=== PATIENT | male | born 1990 | race Caucasian/White ===

== ENCOUNTER 2020-01-02 20:17 | Emergency (ER) | payer SELFPAY ==
[2020-01-02 20:45] VITALS: BP 150/80; PULSE 70; RESP 15; TEMP 37.4; O2SAT 100
--- NOTE | 2020-01-02 21:02 | ED.GENADULT ---
HPI - General Adult General Chief complaint: Unspecified Stated complaint: bite on ankle Source: patient History of Present Illness HPI narrative: patient has a red warm tender area to the lateral aspect of his left lower extremity this is a 29-year-old with no significant past medical history symptoms started approximately 2 to 3 days ago and has progressed with a central punctate eschars lesion with surrounding erythema as warm swollen and tender to touch. There is no fever chills no shortness of breath no nausea vomiting or abdominal pain. Patient is not sure when he came in contact with. Onset (ago): day(s) Location: left and upper extremity Radiation: non-radiation Severity: moderate Quality: aching Pain Consistency: constant Relieving factors: none Exacerbating factors: none Associated symptoms: denies other symptoms Related Data Allergies Allergy/AdvReac Type Severity Reaction Status Date / Time No Known Allergies Allergy Verified 04/25/19 17:30 Review of Systems Review of Systems: All systems reviewed & are unremarkable except as noted in HPI and below PMFSH Past Medical History Medical History Strep throat Surgical History Surgical History No history of previous surgery Family History Family History Mother No problems noted. Father No problems noted. Social History Social History Additional smoking assessment comments: does not smoke cigarettes Alcohol intake: current Substance use: never Exam Const: General: no acute distress Orientation/consciousness: patient oriented x3 HENMT: Head: normal to inspection Eyes: Conjunctivae: conjunctivae normal Pupils: Equal, round and reactive pupils present EOM: EOMs intact bilaterally Neck: Neck: normal visual inspection, no lymphadenopathy and no meningeal signs Chest: Chest palpation & inspection: normal inspection of the chest Resp: Effort & Inspection: normal respiratory effort Auscultation: clear to auscultation bilaterally Cardio: Rate: regular rate Rhythm: regular rhythm GI: GI Palp: Yes Soft to palpation Auscultation: normal bowel sounds Skin: Other: Central punctate eschar with surrounding erythema warmth and tenderness left lower lateral extremity Extrem: General: edema Psych: Mental Status: mental status grossly normal Course Course Emergency Course: patient received IM ceftriaxone and updated with his tetanus Vital Signs Vital signs: Vital Signs Temperature 37.4 C 01/02/20 20:45 Pulse Rate 70 01/02/20 20:45 Respiratory Rate 01/02/20 20:45 Blood Pressure 150/80 H 01/02/20 20:45 Pulse Oximetry 100 01/02/20 20:45 Temperature 37.4 C 01/02/20 20:45 Pulse Rate 70 01/02/20 20:45 Respiratory Rate 01/02/20 20:45 Blood Pressure 150/80 H 01/02/20 20:45 Pulse Oximetry 100 01/02/20 20:45 Medical Decision Making Vital Signs Vital Signs: Vital Signs Temperature 37.4 C 01/02/20 20:45 Pulse Rate 70 01/02/20 20:45 Respiratory Rate 01/02/20 20:45 Blood Pressure 150/80 H 01/02/20 20:45 Pulse Oximetry 100 01/02/20 20:45 Temperature 37.4 C 01/02/20 20:45 Pulse Rate 70 01/02/20 20:45 Respiratory Rate 01/02/20 20:45 Blood Pressure 150/80 H 01/02/20 20:45 Pulse Oximetry 100 01/02/20 20:45 Critical Care Time Critical Care Time Critical Care Time: No Discharge Plan Discharge Clinical Impression: Cellulitis and abscess of left leg Insect bite Qualifiers: Encounter type: initial encounter Site of insect bite: lower leg Laterality: left Qualified Code(s): S80.862A - Insect bite (nonvenomous), left lower leg, initial encounter Patient Disposition: Home, Self-Care Condition: Stable Instructions: Anti
[2020-01-02] MEDS: TETANUS,DIPHTHERIA,AC PERTUSSIS ADULT 0.5 ML (ADACEL) IM (21:53)
[2020-01-02] MEDS: cefTRIAXone 1 GM VIAL IM (21:53)
[2020-01-02] MEDS: LIDOCAINE HCL 1% LOCAL INJ 20 ML VIAL (21:54)
[2020-01-02 22:20] VITALS: RESP 15; O2SAT 100
== END 2020-01-02 22:21 | disposition home or self-care (01) ==
PROVIDERS: Emergency Provider Emergency Medicine
DX: L03.116 Cellulitis of left lower limb (principal); S80.862A Insect bite (nonvenomous), left lower leg, initial encounter; W57.XXXA Bitten or stung by nonvenomous insect and other nonvenomous arthropods, initial encounter
CPT/HCPCS: 90471; 90715; 96372; 99283; J0696

== ENCOUNTER 2020-04-01 19:34 | Emergency (ER) | payer SELFPAY ==
--- NOTE | 2020-04-01 19:42 | ED.EXTPRO ---
HPI - Extremity Problem General Stated complaint: 29YO male w/ 2 day h.o boil to right distal thigh w/ pus exudate here for examination of swelling w/ redness. Patient requests antibiotics. He denies fever, chills, trauma or injury. Related Data Allergies Allergy/AdvReac Type Severity Reaction Status Date / Time No Known Allergies Allergy Verified 04/25/19 17:30 Review of Systems Review of Systems: All systems reviewed & are unremarkable except as noted in HPI and below PMFSH Past Medical History Medical History (Updated 04/01/20 @ 19:46 by Walter Brown MD) Strep throat Surgical History Surgical History No history of previous surgery Family History Family History Mother No problems noted. Father No problems noted. Social History Social History Additional smoking assessment comments: does not smoke cigarettes Alcohol intake: current Substance use: never Exam Chest: Chest palpation & inspection: normal inspection of the chest Resp: Effort & Inspection: normal respiratory effort Auscultation: clear to auscultation bilaterally Cardio: Rate: regular rate Rhythm: regular rhythm Skin: Wounds: wounds noted (Right Distal thigh erythema w/ induration w/ open lesion) Neuro: General: patient oriented x3, moves all extremities and CN's II-XI intact bilaterally Speech: normal speech Gait exam (Neuro): Normal gait present Psych: Mental Status: mental status grossly normal Course Course Emergency Course: Home on PO abx Critical Care Time Critical Care Time Critical Care Time: No Discharge Plan Discharge Clinical Impression: Cellulitis of knee, right Patient Disposition: Home, Self-Care Condition: Improved Instructions: Antibiotic Form, Cellulitis (ED) Prescriptions: New doxycycline monohydrate 100 mg capsule 100 mg PO BID Qty: 20 RF: 0 No Action amoxicillin-pot clavulanate [Augmentin] 875-125 mg tablet 1 tablet PO Q12H Qty: 20 RF: 0 Follow-up/Referrals: UNKNOWN,DOCTOR [Primary Care Provider] - Time of Disposition: 19:47
[2020-04-01 19:45] VITALS: BP 133/88; PULSE 80; RESP 18; TEMP 37.2; O2SAT 97
[2020-04-01] MEDS: cefTRIAXone 1 GM VIAL IM (19:54)
== END 2020-04-01 20:15 | disposition home or self-care (01) ==
PROVIDERS: Emergency Provider Family Medicine
DX: L03.115 Cellulitis of right lower limb (principal)
CPT/HCPCS: 96372; 99283; A9270; J0696

== ENCOUNTER 2020-08-10 22:21 | Emergency (ER) | payer SELFPAY ==
[2020-08-10 22:43] VITALS: BP 144/88; PULSE 78; RESP 20; TEMP 37.1; O2SAT 98
--- NOTE | 2020-08-10 22:44 | ED.WOUNDLAC ---
HPI - Wound/Laceration General Chief Complaint: Wound/Laceration Stated Complaint: cut finger Time Seen by Provider: 08/10/20 22:40 Source: patient Mode of arrival: ambulatory Limitations: no limitations History of Present Illness HPI narrative: Patient comes in with laceration to tip or 4th left finger. Cut is a partial thickness laceration, which is 1.5cm long, on the very tip of the finger. Wound happened when attempting to open a can. Sharp pain at site has been mild. Bleeding was initially severe, now controlled. Direct pressure at home decreased the bleeding. No other associated signs/symptoms. Onset (ago): hour(s) Place: home Patient tetanus UTD: Yes Context: accidental Associated symptoms: pain Treatments prior to arrival: other (direct pressure) Related Data Allergies Allergy/AdvReac Type Severity Reaction Status Date / Time No Known Allergies Allergy Verified 04/25/19 17:30 Review of Systems Constitutional: Constitutional: Reports no additional constitutional complaints Eyes: Eyes: Reports no additional eye complaints ENT: Reports system reviewed and no additional complaints, except as documented Cardiovascular: Cardiovascular: Reports no additional cardiovascular complaints Respiratory: Respiratory: Reports no additional respiratory complaints Gastrointestinal: Gastrointestinal: Reports no additional gastrointestinal complaints Genitourinary: Genitourinary: Reports no additional male genitourinary complaints Musculoskeletal: Musculoskeletal: Reports no additional musculoskeletal complaints Integumentary/Breasts: Skin/Breast: Reports system reviewed and no additional complaints, except as docu Neurologic: Reports system reviewed and no additional complaints, except as documented Psychiatric: Psychiatric: Reports no additional psychiatric complaints Endocrine: Endocrine: Reports no additional endocrine complaints Hematologic/Lymphatic: Hematologic/Lymphatic: Reports no additional hematologic/lymphatic complaints Allergic/Immunologic: Allergic/Immunologic: Reports no additional allergic/immunologic complaints [facility] Past Medical History Medical History (Updated 08/11/20 @ 04:31 by Kobi Cornejo MD) No significant medical problems Surgical History Surgical History No history of previous surgery Family History Family History Mother No problems noted. Father No problems noted. Social History Social History (Updated 08/11/20 @ 04:32 by Kobi Cornejo MD) Additional smoking assessment comments: 1/2 PPD Alcohol intake: current Substance use: current Substance use type: marijuana Exam Const: General: no acute distress Orientation/consciousness: patient oriented x3 HENMT: Head: normal to inspection Ears: external ears normal and TM's normal bilaterally General nose exam: Normal external nose present Face and sinus: normal facial exam Mouth: Yes Normal oral and palatal mucosa present Throat: posterior oropharynx normal Eyes: Conjunctivae: conjunctivae normal Neck: Neck: normal visual inspection Chest: Chest palpation & inspection: normal inspection of the chest Resp: Effort & Inspection: normal respiratory effort Auscultation: clear to auscultation bilaterally Cardio: Rate: regular rate Rhythm: regular rhythm GI: GI Palp: Yes Soft to palpation (nontender) Skin: General skin exam: normal color Neuro: General: patient oriented x3 Extrem: General: normal to inspection Psych: Appearance: grossly normal Mental Status: mental status grossly normal Thought content: Yes Normal thought content present Course Course Emergency Course: Skin adhesive was applied to the wound to close the wound Vital Signs Vital signs: Vital Signs Temperature 37.1 C 08/10/20 22:43 Pulse Rate 78 08/10/20 22:43 Respiratory Rate 20 08/10/20 22:43
--- NOTE | 2020-08-10 22:47 | PC.NURSE ---
2229-Cleaned wound left hand, fourth digit with sterile water, hibclense, wound cleanser, and Dr. Cornejo applied Dermabond. I applied a band aid to cover wound.
[2020-08-10 22:49] VITALS: BP 134/81; PULSE 72; RESP 18; O2SAT 99
== END 2020-08-10 22:57 | disposition home or self-care (01) ==
PROVIDERS: Emergency Provider Emergency Medicine
DX: S61.215A Laceration without foreign body of left ring finger without damage to nail, initial encounter (principal); F12.90 Cannabis use, unspecified, uncomplicated; W26.8XXA Contact with other sharp object(s), not elsewhere classified, initial encounter
CPT/HCPCS: 99282

== ENCOUNTER 2024-10-29 10:36 | Emergency (ER) | payer MEDICAID, SELFPAY ==
[2024-10-29 10:38] VITALS: BP 147/90; PULSE 73; RESP 16; TEMP 37.2; O2SAT 99
--- OUTSIDE RECORDS SUMMARY | 2024-10-29 10:38 | XMS_ITS | Clinical Summary ---
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 Gender Identity Not on file Sexual Orientation Not on file Last Filed Vital Signs Vital Sign Reading Time Taken Comments Blood Pressure 138/78 04/29/2020 2:21 AM CHEMICAL TECHNICIAN Pulse 66 04/29/2020 2:21 AM CHEMICAL TECHNICIAN Temperature 36.6 C (97.9 F) 04/29/2020 2:21 AM CHEMICAL TECHNICIAN Respiratory Rate 18 04/29/2020 2:21 AM CHEMICAL TECHNICIAN Oxygen Saturation 100% 04/29/2020 2:21 AM CHEMICAL TECHNICIAN Inhaled Oxygen Concentration - - Weight 68 kg (150 lb) 04/29/2020 2:21 AM CHEMICAL TECHNICIAN Height 172.7 cm (5' 8) 04/29/2020 2:21 AM CHEMICAL TECHNICIAN Body Mass Index 22.81 04/29/2020 2:21 AM CHEMICAL TECHNICIAN Plan of Treatment Health Maintenance Due Date Last Done Comments Annual Physical 07/20/1995 Hepatitis C 2010 DTaP, Tdap and Td Vaccines ( 1 - Tdap) 07/20/2011 Hepatitis B Vaccines (1 of 3 - 19+ 3-dose series) 07/20/2011 COVID-19 Vaccine (2023-2 5 season) 2023 HPV Vaccines Aged Out No longer eligi ble based on patient's age to complete this topic Meningococcal B Vaccine Aged Out No l onger eligible based on patient's age to complete this topic Meningococcal Vaccine Aged Out No sergo arabella eligible based on patient's age to complete this topic Pneumococcal Vaccine: Pediat rics (0 to 5 Years) and At-Risk Patients (6 to 49 Years) Aged Out No longer eligible b ased on patient's age to complete this topic RSV Immunizations Under 20 Months Aged Out No longer eligible based on patient's age to complete this topic Care Teams Medical Record Librarians Teacher Relationship Specialty Start Date End Date None, Provider, PCP - 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
--- NOTE | 2024-10-29 10:39 | ED.EXTPRO ---
HPI - Extremity Problem General Chief complaint: Wound/Laceration Stated complaint: tdap shot Time Seen by Provider: 10/29/24 10:39 Source: patient Mode of arrival: ambulatory Limitations: no limitations History of Present Illness HPI Narrative: 34 year old male presents to the Emergency Department with puncture wound to the solar aspect of right heel. 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 Unknown last tetanus. Onset (ago): day(s) (1) Related Data Allergies Allergy/AdvReac Type Severity Reaction Status Date / Time No Known Allergies Allergy Verified 10/29/24 10:38 Review of Systems Review of Systems: All systems reviewed & are unremarkable except as noted in HPI and below Constitutional: Constitutional: Reports as per HPI Eyes: Eyes: Reports as per HPI ENT: Reports system reviewed and no additional complaints, except as documented Cardiovascular: Cardiovascular: Reports as per HPI Respiratory: Respiratory: Reports as per HPI Gastrointestinal: Gastrointestinal: Reports as per HPI Genitourinary: Genitourinary: Reports no additional male genitourinary complaints Musculoskeletal: Musculoskeletal: Reports no additional musculoskeletal complaints Comments: puncture wound to solar aspect R heel Neurologic: Reports system reviewed and no additional complaints, except as documented PMFSH Past Medical History Medical History No significant medical problems Surgical History Surgical History No history of previous surgery Family History Family History Mother No problems noted. Father No problems noted. Social History Social History Additional smoking assessment comments: 1/2 PPD Alcohol intake: current Alcohol use details: drinks beer, not every day Substance use: current Substance use type: marijuana Exam Const: General: healthy appearing Nutritional Appearance: well nourished Orientation/consciousness: patient oriented x3 Limitations: no limitations HENMT: Head: normal to inspection Ears: external ears normal Face/Nose/Sinus: Normal external nose present Face and sinus: normal facial exam Eyes: Pupils: Equal, round and reactive pupils present EOM: EOMs intact bilaterally Direct Ophthalmoscopy: no photophobia Chest: Chest palpation & inspection: normal inspection of the chest Resp: Effort & Inspection: normal respiratory effort Cardio: Rate: regular rate GI: Inspection: non-distended Skin: General skin exam: normal color Other: puncture wound to solar aspect R heel, no active bleeding, no FB palpable Neuro: General: patient oriented x3 Speech: normal speech Gait exam (Neuro): Normal gait present Other: grossly normal Extrem: Other: puncture wound to solar aspect R heel, no active bleeding, no FB palpable MDM - Extremity (Nontraumatic) MDM Narrative Medical decision making narrative: 34 y/o male presents to the ED c/o puncture wound to right foot. States stepped on piece of rebar, that penetrated through his shoe, while pouring concrete yesterday. Unsure of last tetanus. PE: puncture wound to solar aspect R heel, no active bleeding, no FB palpable, NV intact *review of medical records reveals last tetanus 12/2019. Rx and Instructions Discharge Plan Discharge Clinical Impression: Puncture wound of foot, right Patient Disposition: Home Condition: Stable Instructions: Antibiotic Form, Puncture Wound (ED) Additional Instructions: Take medication as prescribed Follow up Primary Care Provider Patient Language: Montserratian Prescriptions: New ciprofloxacin HCl [Cipro] 500 mg tablet 500 mg PO Q12H Qty: 6 0RF No Action doxycycline monohydrate 100 mg capsule 100 mg PO BID Qty: 20 0RF Follow-up/Referrals: UNKNOWN,DOCTOR [Primary Care Provider] - Jessica Botello MD [Physician] - Time of Disposition: 10:49
--- OUTSIDE RECORDS SUMMARY | 2024-10-29 10:59 | XMS_ITS | Clinical Summary ---
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 Name Role Phone None, Provider MD Primary [...] on file Legal Sex Male 2:12 AM ATTIC BLOWER Gender Identity Not on file Sexual Orientation Not on file Last Filed Vital Signs Vital Sign Reading Time Taken Comments Blood Pressure 138/78 04/29/2020 2:21 AM ATTIC BLOWER Pulse 66 04/29/2020 2:21 AM ATTIC BLOWER Temperature 36.6 C (97.9 F) 04/29/2020 2:21 AM ATTIC BLOWER Respiratory Rate 18 04/29/2020 2:21 AM ATTIC BLOWER Oxygen Saturation 100% 04/29/2020 2:21 AM ATTIC BLOWER Inhaled Oxygen Concentration - - Weight 68 kg (150 lb) 04/29/2020 2:21 AM ATTIC BLOWER Height 172.7 cm (5' 8) 04/29/2020 2:21 AM ATTIC BLOWER Body Mass Index 22.81 04/29/2020 2:21 AM ATTIC BLOWER Plan of Treatment Health Maintenance Due Date [...] age to complete this topic Care Teams Concrete Mixing Truck Driver Relationship Specialty Start Date End Date None, Provider, PCP - General 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
[2024-10-29 11:01] VITALS: BP 147/90; PULSE 73; RESP 16; TEMP 37.2; O2SAT 99
== END 2024-10-29 11:01 | disposition home or self-care (01) ==
PROVIDERS: Emergency Provider Emergency Medicine; Referring Provider Internal Medicine
DX: S91.331A Puncture wound without foreign body, right foot, initial encounter (principal); F17.210 Nicotine dependence, cigarettes, uncomplicated; W26.8XXA Contact with other sharp object(s), not elsewhere classified, initial encounter
CPT/HCPCS: 99282